=== PATIENT | female | born 1970 | race Caucasian/White ===

== ENCOUNTER 2018-10-23 10:28 | Emergency (ER) | payer BC ==
--- NOTE | 2018-10-23 10:56 | ER Document Report ---
ED Medical Screen (RME) - General Chief Complaint: Wound Recheck Stated Complaint: WOUND RECHECK Time Seen by Provider: 10/23/18 10:52 TRAVEL OUTSIDE OF THE [place] IN LAST 30 DAYS: No - HPI Notes: 10/23/18 10:54 Patient is a 48-year-old female who presents for wound check with Marie per her direction 2 days ago for cellulitis. Patient states that she has been taking her medicines and is not feeling significantly worse. Denies COWART, fever, neck pain, URI, CP, SOB, Abd pain, dysuria, back pain. I have treated and performed a rapid initial assessment of this patient. A comprehensive ED assessment and evaluation of the patient, analysis of test results and completion of medical decision making process will be conducted by additional ED providers. PHYSICAL EXAMINATION: GENERAL: Well-appearing, well-nourished and in no acute distress. A&Ox4. Answers questions appropriately. LUNGS: Breath sounds clear to auscultation bilaterally and equal. No wheezes rales or rhonchi. HEART: Regular rate and rhythm without murmurs, rubs, gallops. - Related Data Allergies/Adverse Reactions: Penicillins Allergy (Verified 10/21/18 12:20) Sulfa (Sulfonamide Antibiotics) Allergy (Verified 10/21/18 12:20) Past Medical History Renal/ Medical History: Denies: Hx Peritoneal Dialysis Physical Exam - Vital signs Vitals: Temp Pulse Resp BP Pulse Ox 98.1 F 98 16 152/84 H 93 10/23/18 10:33 10/23/18 10:33 10/23/18 10:33 10/23/18 10:33 10/23/18 10:33 Course - Vital Signs Vital signs: Temp Pulse Resp BP Pulse Ox 98.1 F 98 16 152/84 H 93 10/23/18 10:33 10/23/18 10:33 10/23/18 10:33 10/23/18 10:33 10/23/18 10:33
--- NOTE | 2018-10-23 11:17 | ER Document Report ---
ED General - General Chief Complaint: Wound Recheck Stated Complaint: WOUND RECHECK Time Seen by Provider: 10/23/18 10:52 TRAVEL OUTSIDE OF THE [place] IN LAST 30 DAYS: No - HPI Notes: 48-year-old female to the emergency department for wound check to her left lower leg. She was seen 2 days ago for this wound and was placed on clindamycin. She has had a chronic left lower leg anterior ulcer for the past several months. It has been doing well until last week when he got reinfected. She was seen by her primary care physician and started on Cipro last . She came in 2 days ago complaining of persistent and worsening lower leg pain and foul purulent discharge. She had lab work done which was negative at that time and it was decided that perhaps the Cipro was not a good choice for her wound infection. The plan at that time was to start her on clindamycin and then to see her in 2 days to make sure that she was doing better. Patient states the pain is improved significantly since starting the clindamycin and the redness to her leg has gone down. She also states that the purulent drainage has decreased and she is feeling better. Denies any fevers, chills, chest pain, shortness of breath, nausea vomiting, diarrhea, headache. - Related Data Allergies/Adverse Reactions: Penicillins Allergy (Verified 10/21/18 12:20) Sulfa (Sulfonamide Antibiotics) Allergy (Verified 10/21/18 12:20) Past Medical History - General Information source: Patient - Social History Smoking Status: Current Every Day Smoker Chew tobacco use (# tins/day): No Frequency of alcohol use: None Drug Abuse: None Family History: Reviewed & Not Pertinent Patient has suicidal ideation: No Patient has homicidal ideation: No Renal/ Medical History: Denies: Hx Peritoneal Dialysis Review of Systems - Review of Systems Constitutional: denies: Chills, Fever EENT: No symptoms reported Cardiovascular: denies: Chest pain, Palpitations, Dizziness, Lightheaded Respiratory: denies: Cough, Short of breath Gastrointestinal: denies: Abdominal pain, Diarrhea, Nausea, Vomiting Genitourinary: denies: Frequency, Flank pain Musculoskeletal: Muscle pain, Leg swelling - Lower leg swelling, erythema, wound improving from prior Skin: Other - Left lower leg ulcer Neurological/Psychological: No symptoms reported -: Yes All other systems reviewed and negative Physical Exam - Vital signs Vitals: Temp Pulse Resp BP Pulse Ox 98.1 F 98 16 152/84 H 93 10/23/18 10:33 10/23/18 10:33 10/23/18 10:33 10/23/18 10:33 10/23/18 10:33 Interpretation: Normal - General General appearance: Appears well In distress: None - HEENT Head: Normocephalic, Atraumatic Eyes: Normal Pupils: PERRL - Respiratory Respiratory status: No respiratory distress Chest status: Nontender Breath sounds: Normal Chest palpation: Normal - Cardiovascular Rhythm: Regular Heart sounds: Normal auscultation Murmur: No - Abdominal Inspection: Normal Distension: No distension Bowel sounds: Normal Tenderness: Nontender Organomegaly: No organomegaly - Extremities General lower extremity: Other - To the left lower leg anteriorly there is a 5 cm ulceration with mild purulent discharge with surrounding erythema. This looks much better than 2 days ago the erythema has decreased and the warmth has gone down. It is far less tender to palpation and patient feels like it has improved significantly - Neurological Neuro grossly intact: Yes Cognition: Normal Orientation: AAOx4 [place] Coma Scale Eye Opening: Spontaneous Husam Coma Scale Verbal: Oriented Husam Coma Scale Motor: Obeys Commands [place] Coma Scale Total: 15 Speech: Normal Motor strength normal: LUE, RUE, LLE, RLE Sensory: Normal - Psychological Associated symptoms: Normal affect, Normal mood - Skin Skin Temperature: Warm Skin Moisture: Dry - See extremities for discussion about the left lower leg cellulitis and ulceration Course - Vital Signs Vital signs: Temp Pulse Resp BP Pulse Ox 98.1 F 98 16 152/84 H 93 10/23/18 10:33 10/23/18 10:33 10/23/18 10:33 10/23/18 10:33 10/23/18 10:33 - Transfer of Care Notes: 10/23/18 11:49 Impression: Left lower leg cellulitis and left leg ulceration. Her wound has improved since she was last here 2 days ago as well as her pain. Patient states that she feels like it is actually getting better. She has reassuring vitals. Clindamycin seems to be really helping. We will plan on discharge home. Attempted to move her wound care appointment up from November 15. Called and spoke with Sabrina at [facility] but unfortunately was not able to move her appointment at this time. Sabrina did say that she would call the patient if any availability opened up sooner advised patient of this and she agrees with the plan. We will have her follow with her primary care physician by the end of the week. Have encouraged her to complete the clindamycin. Encouraged her to return if her symptoms worsen with fevers, worsening pain, worsening redness, streaking erythema into the groin, or any other symptoms. Discharge - Discharge Clinical Impression: Visit for wound check, Cellulitis of leg without foot, left, Ulcer of left lower leg Condition: Good Disposition: HOME, SELF-CARE Instructions: Cellulitis ([facility]) Additional Instructions: FOLLOW UP WITH PRIMARY CARE IN 2 DAYS FOR WOUND CHECK. CONTINUE TO TAKE ANTIBIOTICS UNTIL COMPLETION. RETURN IF WORSE. Forms: Return to Work Referrals: DELL BELL PA-C [Primary Care Provider] - Follow up in 3-5 days
[2018-10-23 12:06] VITALS: BP 142/70
== END 2018-10-23 11:45 | disposition home or self-care (01) ==
LOC: ER 10:28
DX: L97.829 Non-pressure chronic ulcer of other part of left lower leg with unspecified severity (principal); L03.116 Cellulitis of left lower limb; Z88.0 Allergy status to penicillin; Z88.2 Allergy status to sulfonamides; F17.200 Nicotine dependence, unspecified, uncomplicated
CPT/HCPCS: 99282

== ENCOUNTER → 2019-07-31 | Outpatient (CLI) | payer BC ==
[2019-07-31 08:46] LABS: A TYPE INFLUENZA AG NEGATIVE (NEGATIVE); B INFLUENZA AG NEGATIVE (NEGATIVE)
--- NOTE | 2019-07-31 13:31 | ER RDC ASSESSMENT REPORT ---
General - General - Related Data Allergies/Adverse Reactions: Penicillins Allergy (Verified 10/21/18 12:20) Sulfa (Sulfonamide Antibiotics) Allergy (Verified 10/21/18 12:20) Past Medical History - Social History Family History: Reviewed & Not Pertinent Renal/ Medical History: Denies: Hx Peritoneal Dialysis Diagnostic Results Laboratory Results: 07/31/19 08:09 Throat Throat Culture - Pending Influenza A (Rapid) NEGATIVE (NEGATIVE) 07/31/19 08:11 Influenza B (Rapid) NEGATIVE (NEGATIVE) 07/31/19 08:11 Group A Strep Rapid NEGATIVE (NEGATIVE) 07/31/19 08:09
== END ==
LOC: RDC 07:58
PROVIDERS: ATTEND Registered Nurse
DX: Z20.820 Contact with and (suspected) exposure to varicella (principal)
CPT/HCPCS: 87070; 87635; 87804; 87880